=== PATIENT | female | born 1975 | race Caucasian/White ===

== ENCOUNTER → 2016-12-06 | Outpatient (CLI) | payer MEDICARE, MEDICAID ==
[~2016-12-06] MED LIST: /CELE20CA OR; /ESCI10TA; /ESCI20TA OR; ALBOTERNEB INHALATION; AMITRIP50 PO; ANEXSIA PO; ANEXSIA5 PO; ATARAX25 PO; AVELOX PO; BACL10TA2 OR; BACL10TA2 PO; CLARITIN10 PO; DICL75TA PO; DOXYCYC100 PO; FERROUS325 PO; FLEXERIL OR; FLEXERIL PO; HYCODAN PO; HYDR25TA8 OR; HYDROCCR1 TOPICAL; IBUP600T OR; KENALOG1 TOPICAL; LACHYDRIN TOP; LEXA5TAB13; LEXAPRO; LIDODERM TOPICAL; MELA0.02 PO; MOTRIN400 PO; MOTRIN6 PO; MOTRIN800 PO; MULTIVIT PO; NABU500T; NEUR600T; NEUR800T; NEUR800T OR; NEURONTIN4 PO; NICO21DI4; PERC5TAB8; PERCOCET PO; ROBITUSSIN PO; ROZEREM PO; SKEL800T5 OR; SOMA250T; SOMA250T OR; SOMA350T; TIZA4CAP3 PO; TRAM50TA2; TRAM50TA2 OR; TRAM50TA2 PO; TRAZ100T; TRAZ150T; TRAZ150T OR; ULTRAM50 PO; VENL75TA2; VENL75TA2 OR; VICO5TAB OR; VICODIN PO; VICODINES TAB OR; VICOTAB OR; VICOTAB PO; VIT B COMPLEX; VITAMIN B COMPLE1 OR; VOLT1GEL EX; WELLBUT300 PO; ZANA4CAP; ZIPSOR OR; [UNRECOGNIZED DRUG - CODE] PO; [UNRECOGNIZED DRUG - CODE] PO; [UNRECOGNIZED DRUG - CODE] PO; [UNRECOGNIZED DRUG - OTHER]; vicoprofen PO
--- NOTE | 2016-12-12 00:03 | ECWPNPC ---
PATIENT NAME: SHAJI VENTURA : 1975 GENDER: FEMALE VISIT DATE: 12/06/2016 DISCHARGE DATE: 12/06/16 1055 VISIT LOCKED DATE TIME: PHYSICIAN: RAH SIMON RESOURCE: RAH SIMON REASON FOR APPOINTMENT 1. BACK HISTORY OF PRESENT ILLNESS HISTORY OF PRESENT ILLNESS: PAIN THE PATIENT DESCRIBES THE PAIN... FALL RISK SCREENING: SCREENING :NO FALLS IN THE PAST YEAR TODAY'S VISIT: NOTES: RATES PAIN TODAY 8-9/10. DESCRIBES PAIN CONSTANT, ACHING, BURNING, TENDER, THROBBING AND SORE AND SHOOTING. NOTES PAIN IS OVER WHOLE BACK WITH RADIATION TO RIGHT LEG. THIS INCREASE IN PAIN OCCURRED ON 12/01/16WHEN SHE MOVED HER PARENTS BACK TO THEIR [place] HOME. CURRENT MEDICATIONS TAKING TRAZODONE HCL 150 MG TABLET 1 TABLET AT BEDTIME NEEDED ORALLY DAILY AT BEDTIME TAKING TRAMADOL HCL 50 MG TABLET 1-2 TABLETS ORALLY TAKE 1-2 TABS Q 4 HOURS PRN PAIN MDD=5 TAKING BUSPIRONE HCL 10 MG TABLET 1 TABLET ORALLY BID TAKING TIZANIDINE HCL 4 MG TABLET 1 TABLET NEEDED ORALLY EVERY 8 HRS PRN TAKING IBUPROFEN 800 MG TABLET 1 TABLET ORALLY THREE TIMES A DAY TAKING DULOXETINE HCL 30 MG CAPSULE DELAYED RELEASE PARTICLES 1 CAPSULE ORALLY TWICE A DAY TAKING GABAPENTIN 800 MG TABLET 1 TABLET ORALLY THREE TIMES A DAY (PAIN CLINIC) MEDICATION LIST REVIEWED AND RECONCILED WITH THE PATIENT PAST MEDICAL HISTORY [facility] 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 CHRONIC BACK PAIN ARTHRITIS HEPATITIS C 1A STAGE F0 VL 1.7 MILLION [place] [facility] 11/28/15 HEPATITIS A IGG POSITIVE 2004 HEPATITIS B SURFACE ANTIBODY 2008 NICOTINE ADDICTION DEPRESSION PSORIASIS KIDNEY STONES CYST ON OVARY ALLERGIES AMOXICILLIN: HIVES: ALLERGY PENICILLIN (FOR ALLERGIES USE ONLY): HIVES: ALLERGY SOCIAL HISTORY GENERAL: TOBACCO USE ARE YOU A:CURRENT SMOKER HOW MANY CIGARETTES A DAY DO YOU SMOKE?11-20 HOW SOON AFTER YOU WAKE UP DO YOU SMOKE YOUR FIRST CIGARETTE?6-30 MIN HOW OFTEN DO YOU SMOKE CIGARETTES?EVERY DAY PATIENT COUNSELED ON THE DANGERS OF TOBACCO USE AND URGED TO QUIT: COUNCELLED ON THE IMPORTANCE OF QUITTING. ARE YOU INTERESTED IN QUITTING?THINKING ABOUT QUITTING HAS BEEN TRYING THE VAPOR BUT DOESN'T SEEM TO CUT IT LEARNING BARRIERS / SPECIAL NEEDS ORIENTED TO PLAN OF CARE: PATIENT, PAIN MANAGEMENT PATIENT, ORIENTED TO PLAN OF CARE: PATIENT, PAIN MANAGEMENT PATIENT. NEW PATIENT PAIN DIARY TODAY'S VISITNOTES FROM 0-10, WHAT LEVEL IS YOUR PAIN TODAY?0 PAIN CLINIC PFS, CLERGY, PUBLIC HEALTH REFERRALS PFS REFERRAL NEEDED?NO CLERGY REFERRAL NEEDED?NO PUBLIC HEALTH REFERRAL NEEDED?NO WAS THE PROVIDER NOTIFIED OF ANY PERTINENT INFO?NO PFS REFERRAL NEEDED?NO CLERGY REFERRAL NEEDED?NO PUBLIC HEALTH REFERRAL NEEDED?NO WAS THE PROVIDER NOTIFIED OF ANY PERTINENT INFO?NO REVIEW OF SYSTEMS CONSTITUTIONAL: ANY CHANGE IN YOUR MEDICAL CONDITION? NO . CHILLS NO . FEVER NO . INFECTION: DO YOU HAVE NEW INFECTIONS? NO . DO YOU HAVE HISTORY OF MRSA? NO . MUSCULOSKELETAL: ANY NEW PATTERNS OF PAIN OR NUMBNESS? YES, PAIN ALL OVER--HELPED MOVE PARENTS BACK AND LIFTED TOO MUCH. PAIN RIGHT HIP, STATES SHE FEELS LIKE IT PULLED OUT OF THE SOCKET, OCC. LOSES HER BALANCE. SHE IS UNABLE TO PUT HER FULL WT. ON THE LEG . GASTROENTEROLOGY: ANY NEW CHANGE IN BOWEL CONTROL? NO . GENITOURINARY: ANY NEW CHANGE IN BLADDER CONTROL? NO . IS THERE A CHANCE YOU COULD BE ? NO . HEMATOLOGY/LYMPH: DO YOU TAKE ANY BLOOD THINNERS? (FOR EXAMPLE- COUMADIN, PLAVIX, AGGRENOX, PLATEL, PRADAXA, OR XARELTO) NO . WHEN WAS YOUR LAST DOSE? DATE: TIME: . NEUROLOGY: HAVE YOU FALLEN IN THE PAST 6 MONTHS? YES, APPROX 3 WEEKS AGO. WAS TRYING TO CATCH SOMEONE ELSE AND SHE FELL A RESULT. . ANY NEW EXTREMITY NUMBNESS OR WEAKNESS? YES, LEGS ARE WEAK. . CARDIOLOGY: DO YOU HAVE A PACEMAKER OR DEFIBRILLATOR? NO . RESPIRATORY: HAVE YOU BEEN SICK IN THE PAST WEEK? YES, SINUS CONGESTION AND SORE THROAT . FEVER NO . FLU LIKE SYMPTOMS? NO . COUGH NO . INTEGUMENTARY: DO YOU HAVE ANY RASHES OR OPEN SORES? YES, PSORIOSIS ALL OVER . ALLERGIC/IMMUNO: ARE YOU ALLERGIC TO SHELLFISH OR IV DYE? NO . ANY NEW ALLERGIES? NO . PSYCHIATRIC: DO YOU HAVE THOUGHTS OF HURTING YOURSELF OR SOMEONE ELSE? NO . ARE YOU ABUSED, NEGLECTED, OR IN AN UNSAFE ENVIRONMENT? NO . ENDOCRINOLOGY: ARE YOU DIABETIC? NO . OTHER: DO YOU NEED ANY PRESCRIPTIONS? NO . IF YES, PLEASE LIST: ____ . ANY NEW PROBLEMS WITH YOUR MEDICATIONS? NO . WHEN DID YOU LAST EAT? ____ . WHEN DID YOU LAST DRINK? ____ . WHAT DID YOU LAST DRINK? ____ . NAME OF PERSON DRIVING YOU HOME? ____ . DO YOU HAVE ANY OTHER QUESTIONS OR CONCERNS YES, EXTREME PAIN RIGHT LEG. HAS BEEN LIKE THIS SINCE 11/30 AFTER HELPING PARENTS MOVE . REVIEWED BY: PROVIDER: RAH PATINO . VITAL SIGNS WT 163.8 LBS, HT 64 IN, BMI 28.11 INDEX, BP 123/77 MM HG, HR 86 /MIN, RR 16 /MIN, TEMP 98.4 F, OXYGEN SAT % 98, NA INITIALS [id number], REVIEWED BY: AD. EXAMINATION GENERAL EXAMINATION: PSYCHALERT , ORIENTED X 3 , APPROPRIATE MOOD AND AFFECT . HEENT:VOICE RASY. LUNGS:CLEAR TO AUSCULTATION BILATERALLY, NO WHEEZES, RALES OR RHONCHI. HEART:HEART RATE REGULAR, RAPID. MUSCULOSKELETAL:GAIT ANTALGIC. , PALPATION: POSITIVE FOR PAIN OVER LUMBAR SPINOUS PROCESSES AND ACROSS THE LUMBOSACRAL AXIS, LEFT > RIGHT. POSITIVE FOR PAIN OVER L/S PARSPINALS AND OVER THE RIGHT PIRIFORMIS. SLOW TO RISE TO STANDING POSITION. POSTURE STOOPED. WEAKNESS NOTED WITH QUAD FLEXION LEFT > RIGHT.. SKIN:PSORIASIS LESIONS NOTED ON ARMS AND LEGS.. ASSESSMENTS LUMBAR POST-LAMINECTOMY SYNDROME - M96.1 (PRIMARY) MYALGIA - M79.1 TREATMENT LUMBAR POST-LAMINECTOMY SYNDROME CAUDAL/LUMBAR EPIDURALALFREDRAH Naomi 12/06/2016 10:35:14 AM > L3-LEVEL ALFREDRAH M 12/06/2016 10:35:14 AM > L3-LEVEL ALFREDRAH M 12/06/2016 10:35:30 AM > CAUDAL NOTES: CONTINUE CURRENT MEDS,: YOUR EXPERIENCE MATERIAL WAS PRINTED,LUMBAR EPIDURAL INJECTION: RECOVERY AT HOME MATERIAL WAS PRINTED,WHAT IS LUMBAR EPIDURAL INJECTION? MATERIAL WAS PRINTED,PATIENT EDUCATION WAS PRINTED, # 226 TOBACCO USE SCREENING/INTERVENTION: PATIENT CURRENTLY USED TOBACCO. WAS OFFERED SMOKING CESSATION FOR GUIDANCE IN QUITTING THROUGH THE [facility] QUITS PROGRAM AND THE [facility] CESSATION PRO[facility]. , FALLS CARE PLAN: 1. RECOMMEND REMOVING ALL THROW RUGS. 2. RECOMMEND NIGHT LIGHTS 3. RECOMMEND WEARING RUBBER SOLED SHOES AND TO NOT GO BAREFOOT. 4.. ADVISED TO CHANGE POSITION SLOWLY FROM SUPINE TO STANDING TO AVOID DIZZINESS. CLINICAL NOTES: ISTOP REGISTRY REVIEWED AND DEMNOSTRATES COMPLLIANCE. BRINGS IN MEDICATIONS WHICH IS APPROPRIATE FOR WHAT WAS DISPENSED. RECENT URINE TOXICOLOGY REVIEWED. NO UNAUTHORIZED MEDICATIONS. NO ILLICIT SUBSTANCES AND PRESCRIBED MEDICATIONS WERE PRESENT. PREVENTIVE MEDICINE PAIN CLINIC TEACHING: PROCEDURE TEACHING PATIENT DECLINED PRINTED INFORMATION ON EPIDURAL STATING SHE HAS HAD THEM IN THE PAST AND IS FAMILIAR WITH IT. PATIENT ALLOWED OPPORTUNITY TO ASK QUESTIONS.. PROCEDURE CODES FA211 ESTABILISHED PATIENT [facility] FACILITY CHARGE G8783 BP SCR PRFRM RCMDD DEFIND SCR INTVL G8730 PAIN ASSESS POS TOOL F/U PLAN DOC 3016F PT SCRND UNHLTHY OH USE 1124F ACP DISCUSS-NO DSCNMKR DOCD 0518F FALL PLAN OF CARE DOCD G8427 DOC MEDS VERIFIED W/PT OR RE G8420 BMI<30 AND >=22 CALC & DOCU 3288F FALL RISK ASSESSMENT DOCD 4004F PT TOBACCO SCREEN RCVD TLK DISPOSITION & COMMUNICATION FOLLOW UP AFTER INJECTION (REASON: CHECK AUTH LE- CAUDAL APPROACH) ELECTRONICALLY SIGNED BY EDGARDO AKHTAR ON 12/11/2016 AT 01:29 PM EDT DISCLAIMER : THIS IS A VISIT SUMMARY EXTRACTED FROM THE [employer] CHART. IT IS NOT A COPY OF THE [employer] PROGRESS NOTE. MTDBright
== END ==
LOC: M PAIN 09:40
PROVIDERS: ATTEND Nurse Practitioner Family
DX: Z09 Encounter for follow-up examination after completed treatment for conditions other than malignant neoplasm (principal); G89.29 Other chronic pain; M96.1 Postlaminectomy syndrome, not elsewhere classified; M79.1 Myalgia; F17.200 Nicotine dependence, unspecified, uncomplicated; F32.9 Major depressive disorder, single episode, unspecified; L40.9 Psoriasis, unspecified; Z88.1 Allergy status to other antibiotic agents; Z88.0 Allergy status to penicillin; Z79.891 Long term (current) use of opiate analgesic; Z79.1 Long term (current) use of non-steroidal anti-inflammatories (NSAID); Z79.899 Other long term (current) drug therapy

== ENCOUNTER → 2017-03-13 | Outpatient (CLI) | payer MEDICARE, MEDICAID ==
[~2017-03-13] MED LIST changes: -MELA0.02 PO; +MELA3TAB49 PO
--- NOTE | 2017-03-14 00:02 | ECWPNPC ---
PATIENT NAME: SHAJI VENTURA : 1975 GENDER: FEMALE VISIT DATE: 03/13/2017 DISCHARGE DATE: 03/13/17 1555 VISIT LOCKED DATE TIME: PHYSICIAN: RAH SIMON RESOURCE: RAH SIMON REASON FOR APPOINTMENT 1. MEDS, BACK HISTORY OF PRESENT ILLNESS HISTORY OF PRESENT ILLNESS: PAIN THE PATIENT DESCRIBES THE PAIN... FALL RISK SCREENING: SCREENING :NO FALLS IN THE PAST YEAR TODAY'S VISIT: NOTES: RATES PAIN TODAY 8/10. NOTES IT FEELS LIKE SHE GOT KICKED IN THE BACK. NOTES WEAKNESS IN RIGHT LEG AND KNEE. DESCRIBES PAIN CONSTANT, SHARP, STABBING SHOOTING AND SORE. NOTES INCREASING NUMBNESS IN RIGHT FOOT AND SIGNIFICANT DIFFICULTY WALKING. HAD SEVERAL FALLS DUE TO BALANCE DIFFICULTIES.. CURRENT MEDICATIONS TAKING TRAZODONE HCL 150 MG TABLET 1 TABLET AT BEDTIME NEEDED ORALLY DAILY AT BEDTIME TAKING BUSPIRONE HCL 10 MG TABLET 1 TABLET ORALLY BID TAKING TIZANIDINE HCL 4 MG TABLET 1 TABLET NEEDED ORALLY EVERY 8 HRS PRN TAKING IBUPROFEN 800 MG TABLET 1 TABLET ORALLY THREE TIMES A DAY TAKING DULOXETINE HCL 30 MG CAPSULE DELAYED RELEASE PARTICLES 1 CAPSULE ORALLY TWICE A DAY TAKING GABAPENTIN 800 MG TABLET 1 TABLET ORALLY THREE TIMES A DAY (PAIN CLINIC) TAKING TRAMADOL HCL 50 MG TABLET 1-2 TABLETS ORALLY TAKE 1-2 TABS Q 4 HOURS PRN PAIN MDD=5 MEDICATION LIST REVIEWED AND RECONCILED WITH THE PATIENT PAST MEDICAL HISTORY [facility] 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 CONSTITUTIONAL: ANY CHANGE IN YOUR MEDICAL CONDITION? NO . CHILLS NO . FEVER NO . INFECTION: DO YOU HAVE NEW INFECTIONS? NO . DO YOU HAVE HISTORY OF MRSA? NO . MUSCULOSKELETAL: ANY NEW PATTERNS OF PAIN OR NUMBNESS? NO, PT STATES SHE WAS SEEN HERE 11/2016, A CAUDAL LE WAS ORDERED AND SCHEDULED FOR PAIN CONTROL. PT STATES SHE GOT SICK, RECHEDULED, LOST HER NERVE TO GO THROUGH WITH IT. . GASTROENTEROLOGY: ANY NEW CHANGE IN BOWEL CONTROL? NO . GENITOURINARY: ANY NEW CHANGE IN BLADDER CONTROL? NO . IS THERE A CHANCE YOU COULD BE ? NO . HEMATOLOGY/LYMPH: DO YOU TAKE ANY BLOOD THINNERS? (FOR EXAMPLE- COUMADIN, PLAVIX, AGGRENOX, PLATEL, PRADAXA, OR XARELTO) NO . WHEN WAS YOUR LAST DOSE? DATE: TIME: . NEUROLOGY: HAVE YOU FALLEN IN THE PAST 6 MONTHS? NO . ANY NEW EXTREMITY NUMBNESS OR WEAKNESS? NO . CARDIOLOGY: DO YOU HAVE A PACEMAKER OR DEFIBRILLATOR? NO . RESPIRATORY: HAVE YOU BEEN SICK IN THE PAST WEEK? NO . FEVER NO . FLU LIKE SYMPTOMS? NO . COUGH NO . INTEGUMENTARY: DO YOU HAVE ANY RASHES OR OPEN SORES? NO . ALLERGIC/IMMUNO: ARE YOU ALLERGIC TO SHELLFISH OR IV DYE? NO . ANY NEW ALLERGIES? NO . PSYCHIATRIC: DO YOU HAVE THOUGHTS OF HURTING YOURSELF OR SOMEONE ELSE? NO . ARE YOU ABUSED, NEGLECTED, OR IN AN UNSAFE ENVIRONMENT? NO . ENDOCRINOLOGY: ARE YOU DIABETIC? NO . OTHER: DO YOU NEED ANY PRESCRIPTIONS? YES . IF YES, PLEASE LIST: ____ . ANY NEW PROBLEMS WITH YOUR MEDICATIONS? NO . WHEN DID YOU LAST EAT? ____ . WHEN DID YOU LAST DRINK? ____ . WHAT DID YOU LAST DRINK? ____ . NAME OF PERSON DRIVING YOU HOME? ____ . DO YOU HAVE ANY OTHER QUESTIONS OR CONCERNS NO . SKIN: DO YOU HAVE ANY RASHES OR OPEN SORES? PSORIASIS UNDER FAIR CONTROL . VITAL SIGNS WT 155.4 LBS, HT 64 IN, BMI 26.67 INDEX, BP 142/73 MM HG, HR 92 /MIN, RR 16 /MIN, TEMP 99.4 F, OXYGEN SAT % 97%, SAFE IN ENV? (Y/N) Y, NA INITIALS SC 15:14, REVIEWED BY: EM. EXAMINATION GENERAL EXAMINATION: PSYCHALERT , ORIENTED X 3 , APPROPRIATE MOOD AND AFFECT . HEENT:VOICE RASY. LUNGS:CLEAR TO AUSCULTATION BILATERALLY, NO WHEEZES, RALES OR RHONCHI. HEART:HEART RATE REGULAR, RAPID. MUSCULOSKELETAL:GAIT ANTALGIC. , PALPATION: POSITIVE FOR PAIN OVER LUMBAR SPINOUS PROCESSES AND ACROSS THE LUMBOSACRAL AXIS, RIGHT > LEFT. . POSITIVE FOR PAIN OVER LUMBAR PARSPINAL MUSCLES AND OVER THE RIGHT SACRUM. SLOW TO RISE TO STANDING POSITION. POSTURE STOOPED. WEAKNESS NOTED WITH QUAD FLEXION LEFT > RIGHT. GAIT ANTALGIC WITH STIFFNESS IN RIGHT LEG. SKIN:PSORIASIS LESIONS NOTED ON ARMS AND LEGS.. ASSESSMENTS LUMBAR POST-LAMINECTOMY SYNDROME - M96.1 (PRIMARY) MYALGIA - M79.1 TREATMENT LUMBAR POST-LAMINECTOMY SYNDROME REFILL GABAPENTIN TABLET, 800 MG, 1 TABLET, ORALLY, THREE TIMES A DAY (PAIN CLINIC), 30 DAY(S), 90, REFILLS 4 REFILL DULOXETINE HCL CAPSULE DELAYED RELEASE PARTICLES, 30 MG, 1 CAPSULE, ORALLY, TWICE A DAY, 30 DAY(S), 60, REFILLS 2 REFILL TIZANIDINE HCL TABLET, 4 MG, 1 TABLET NEEDED, ORALLY, EVERY 8 HRS PRN, 30 DAY(S), 45, REFILLS 2 REFILL BUSPIRONE HCL TABLET, 10 MG, 1 TABLET, ORALLY, BID, 30 DAY(S), 60 TABLET, REFILLS 2 REFILL TRAZODONE HCL TABLET, 150 MG, 1 TABLET AT BEDTIME NEEDED, ORALLY, DAILY AT BEDTIME, 30 DAY(S), 30, REFILLS 5 REFILL TRAMADOL HCL TABLET, 50 MG, 1-2 TABLETS, ORALLY, TAKE 1-2 TABS Q 4 HOURS PRN PAIN MDD=5, 30 DAY(S), 150, REFILLS 2 LAB: RENAL PROFILE [facility] MRI LS SPINE W/O AND WITH [id number],SUSAN M 03/13/2017 3:33:49 PM > INCREASED RIGHT LEG PAIN/WEAKNESS NOTES: MOVE FORWARD WITH CAUDAL EPIDURAL. CLINICAL NOTES: ISTOP REGISTRY REVIEWED AND DEMNOSTRATES COMPLLIANCE.. REQUEST AUTH FOR MRI OF LUMBAR SPINE WITH AND WITHOUT CONTRAST. SHAJI IS S/P LUMBAR FUSION AND IS NOW EXPERIENCING INCREASING WEAKNESS AND PARESTHESIA/DYSESTHESIA IN BILATERAL LOWER EXTREMITIES. SHE HAS COMPLETED PHYSICAL THERAPY WITHOUT IMPROVEMENT, SHE WALKS DAILY THIS IS HER ONLY TRANSPORTATION AND SHE HAS BEEN TRAILED FOR GREATER THAN 6 WEEKS ON MUSCLE RELAERS AND NSAIDS WITHOUT IMPROVEMENT. PROCEDURE CODES FA211 ESTABILISHED PATIENT [facility] FACILITY CHARGE G1388 PAIN ASSESS POS TOOL F/U PLAN DOC G8427 DOC MEDS VERIFIED W/PT OR RE DISPOSITION & COMMUNICATION FOLLOW UP SCHED FOR CAUDAL EPIDURAL/ FOLLOW UP WITH SW AFTER (REASON: NEED AUTH FOR LUMAR MRI WAND W/O CONTRAST) ELECTRONICALLY SIGNED BY EDGARDO AKHTAR ON 03/13/2017 AT 04:40 PM EDT DISCLAIMER : THIS IS A VISIT SUMMARY EXTRACTED FROM THE [employer] CHART. IT IS NOT A COPY OF THE [employer] PROGRESS NOTE. MTDD
== END ==
LOC: M PAIN 15:00
PROVIDERS: ATTEND Nurse Practitioner Family
DX: M96.1 Postlaminectomy syndrome, not elsewhere classified (principal); M79.1 Myalgia; Z79.891 Long term (current) use of opiate analgesic; Z79.899 Other long term (current) drug therapy; Z88.0 Allergy status to penicillin

== ENCOUNTER → 2017-04-05 | Outpatient (CLI) | payer MEDICARE, MEDICAID ==
[2017-04-05 16:05] LABS: ALBUMIN 3.6 GM/DL (3.2-5.2); ANION GAP 5 MEQ/L (8-16); BLOOD UREA NITROGEN 15 MG/DL (7-18); CALCIUM LEVEL 9.2 MG/DL (8.5-10.1); CARBON DIOXIDE LEVEL 29 MEQ/L (21-32); CHLORIDE LEVEL 101 MEQ/L (98-107); CREATININE FOR GFR 0.65 MG/DL (0.55-1.02); GLOMERULAR FILTRATION RATE > 60.0 (>58); GLUCOSE, FASTING 79 MG/DL (70-105); PHOSPHORUS LEVEL 2.8 MG/DL (2.5-4.9); SODIUM LEVEL 135 MEQ/L (136-145)
== END ==
LOC: M LAB 14:04
PROVIDERS: ATTEND Nurse Practitioner Family
DX: M96.1 Postlaminectomy syndrome, not elsewhere classified (principal)

== ENCOUNTER → 2017-06-13 | Outpatient (CLI) | payer MEDICARE, MEDICAID ==
--- NOTE | 2017-06-13 17:03 | REP ---
MRI LUMBAR SPINE WITHOUT AND WITH CONTRAST: HISTORY: Back pain. CONTRAST: ProHance 12.6 mL. COMPARISON: 12/21/2009. Decreased signal intensity on T2-weighted images is present in the L4-5 intervertebral disc. The disc is decreased in height. These findings are consistent with disc degeneration. There is no disc bulge or herniation at the L1-2 through L3-4 and L5-S1 levels. There is hypertrophy of the posterior articulating facets at the L2-3 and L3-4 levels. The nerves exit the neural foramina without compression. The patient is status post L4-5 anterior and posterior spinal fusion and laminectomy. Bone graft material is present anteriorly and metal rods and pedicle screws posteriorly. There is no disc bulge or herniation at this level. There is hypertrophy of the posterior articulating facets. There are 3 mm of grade 1 spondylolisthesis of L4 on L5. The L4 nerves exit the neural foramina without compression. A small amount of enhancing scar tissue is present in the lateral aspects of the spinal canal. The scar tissue involves the L5 nerves. The conus medullaris is normal in appearance terminating at the level of L1-2 intervertebral disc. Normal signal intensity is present in the lumbar vertebral bodies. IMPRESSION: The patient is status post L4-5 anterior and posterior spinal fusion and laminectomy. There is grade 1 spondylolisthesis of L4 on L5. A small amount of scar tissue involves the L5 nerves. The postoperative change is a new finding. Signed by Pawel Simms MD 06/14/2017 07:55 A
== END ==
LOC: M RAD 15:06
PROVIDERS: ATTEND Nurse Practitioner Family
DX: M54.5 Low back pain (principal)
CPT/HCPCS: 72158; A9576

== ENCOUNTER → 2017-08-30 | Outpatient (CLI) | payer MEDICARE, MEDICAID | LOC: M PAIN 13:00 | DX: M96.1 Postlaminectomy syndrome, not elsewhere classified (principal); M79.1 Myalgia; F17.210 Nicotine dependence, cigarettes, uncomplicated; Z79.891 Long term (current) use of opiate analgesic; Z79.899 Other long term (current) drug therapy; Z88.0 Allergy status to penicillin; Z88.1 Allergy status to other antibiotic agents | CPT/HCPCS: G0463 ==

== ENCOUNTER → 2018-04-16 | Outpatient (CLI) | payer MEDICARE, MEDICAID | LOC: M PAIN 13:45 | DX: M96.1 Postlaminectomy syndrome, not elsewhere classified (principal); M79.1 Myalgia; F32.9 Major depressive disorder, single episode, unspecified; L40.9 Psoriasis, unspecified; F17.210 Nicotine dependence, cigarettes, uncomplicated; Z79.891 Long term (current) use of opiate analgesic; Z79.899 Other long term (current) drug therapy; Z88.0 Allergy status to penicillin; Z88.1 Allergy status to other antibiotic agents; Z14.8 Genetic carrier of other disease; Z86.19 Personal history of other infectious and parasitic diseases | CPT/HCPCS: G0463 ==

== ENCOUNTER 2018-07-12 11:08 | Emergency (ER) | payer MEDICARE, MEDICAID ==
[2018-07-12] MEDS: cloNIDine HCL 0.3 MG/24 HR PATCH TOP (12:05)
[2018-07-12] MEDS: METOCLOPRAMIDE INJ 10MG/2ML VIAL (J2765) IV (12:06)
[2018-07-12] MEDS: KETOROLAC 30 MG/ML VIAL (J1885) IV (12:06)
== END 2018-07-12 12:52 | disposition home or self-care (01) ==
LOC: M ED 11:08
DX: F11.23 Opioid dependence with withdrawal (principal); Z98.1 Arthrodesis status; Z88.0 Allergy status to penicillin; Z79.899 Other long term (current) drug therapy
CPT/HCPCS: J1885

== ENCOUNTER → 2018-07-16 | Outpatient (CLI) | payer MEDICARE, MEDICAID | LOC: M PAIN 13:00 | DX: M96.1 Postlaminectomy syndrome, not elsewhere classified (principal); M79.18 Myalgia, other site; F32.9 Major depressive disorder, single episode, unspecified; L40.9 Psoriasis, unspecified; F17.210 Nicotine dependence, cigarettes, uncomplicated; Z79.899 Other long term (current) drug therapy; Z88.0 Allergy status to penicillin; Z88.1 Allergy status to other antibiotic agents; Z86.19 Personal history of other infectious and parasitic diseases | CPT/HCPCS: G0463 ==

== ENCOUNTER → 2018-10-16 | Outpatient (CLI) | payer MEDICARE, MEDICAID ==
[~2018-10-16] MED LIST changes: +CLON0.3D8 TOP; +DULO1CAP3; +GABA800T4; +REGL10TA6 PO; +TIZA4CAP PO; -TIZA4CAP3 PO; +TRAZ-163 PO
--- NOTE | 2018-10-28 00:40 | ECWPNPC ---
PATIENT NAME: SHAJI VENTURA : 1975 GENDER: FEMALE VISIT DATE: 10/16/2018 DISCHARGE DATE: 10/16/18 1430 VISIT LOCKED DATE TIME: PHYSICIAN: ISMAEL WARREN RESOURCE: ISMAEL WARREN REASON FOR APPOINTMENT 1. BACK HISTORY OF PRESENT ILLNESS HISTORY OF PRESENT ILLNESS: HERE FOR F/U OF CHRONIC LOW BACK AND RIGHT LEG PAIN.RATING PAIN VAS 7/10.FINDS CURRENT CHONIC PAIN MEDICATION EFFECTIVE AT REDUCING PAIN AND KEEPING HER COMFORTABLE.DESCRIBES PAIN CONTINUOUS,ACHING AND SHARP.PAIN IS RIGHT LOW BACK AND LEG. PAIN THE PATIENT DESCRIBES THE PAIN... THE PATIENT DESCRIBES THE PAIN... FALL RISK SCREENING: SCREENING :NO FALLS IN THE PAST YEAR :NO FALLS IN THE PAST YEAR SCREENING :NO FALLS IN THE PAST YEAR :NO FALLS IN THE PAST YEAR CURRENT MEDICATIONS TAKING BUSPIRONE HCL 10 MG TABLET 1 TABLET ORALLY BID TAKING IBUPROFEN 800 MG TABLET 1 TABLET ORALLY THREE TIMES A DAY TAKING DULOXETINE HCL 30 MG CAPSULE DELAYED RELEASE PARTICLES 1 CAPSULE ORALLY DAILY TDD=90 MG TAKING DULOXETINE HCL 60 MG CAPSULE DELAYED RELEASE PARTICLES 1 CAPSULE ORALLY ONCE A DAY TDD=90 MG TAKING TRAMADOL HCL 50 MG TABLET 1-2 TABLETS ORALLY TAKE 1-2 TABS Q 4 HOURS PRN PAIN MDD=6 TAKING GABAPENTIN 800 MG TABLET 1 TABLET ORALLY THREE TIMES A DAY (PAIN CLINIC) TAKING TIZANIDINE HCL 4 MG TABLET 1 TABLET NEEDED ORALLY EVERY 8 HRS PRN TAKING TRAZODONE HCL 150 MG TABLET 1 TABLET AT BEDTIME NEEDED ORALLY DAILY AT BEDTIME MEDICATION LIST REVIEWED AND RECONCILED WITH THE PATIENT PAST MEDICAL 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 1 SON(S) , 3 DAUGHTER(S) - HEALTHY. SOCIAL HISTORY GENERAL: TOBACCO USE ARE YOU A:CURRENT SMOKER ARE YOU INTERESTED IN QUITTING?NOT READY TO QUIT COUNSELED THE PATIENT ON SMOKING EFFECTS, EDUCATION [id number]/30/2019 HOW MANY CIGARETTES A DAY DO YOU SMOKE?5 OR LESS HOW SOON AFTER YOU WAKE UP DO YOU SMOKE YOUR FIRST CIGARETTE?WITHIN 5 MIN HOW OFTEN DO YOU SMOKE CIGARETTES?EVERY DAY PATIENT COUNSELED ON THE DANGERS OF TOBACCO USE AND URGED TO QUIT:07/16/2018 ADDITIONAL FINDINGS: TOBACCO USER VAPOR SMOKING CESSATION INFORMATION GIVEN10/16/2018 BMI CARE GOAL FOLLOW-UP ABOVE NORMAL BMI FOLLOW-UPGIVING ENCOURAGEMENT TO EXERCISE ALCOHOL SCREENING DID YOU HAVE A DRINK CONTAINING ALCOHOL IN THE PAST YEAR?YES POINTS0 INTERPRETATIONNEGATIVE RECREATIONAL DRUG USE DENIES. DENOMINATIONAL [id number] NONE LANGUAGE LANGUAGES SPOKEN:[place] LEARNING BARRIERS / SPECIAL NEEDS CHANGE FROM LAST VISIT?NO BARRIERS TO LEARNING?NO HEARING IMPAIRED?NO VISION IMPAIRED?NO COGNITIVELY IMPAIRED?NO READINESS TO LEARN?YES LEARNING PREFERENCES?NO LEARNING CAPABILITIES PRESENT?NO EMOTIONAL BARRIERS?NO SPECIAL DEVICES?NO TERRAZZO SUPERVISOR NEEDED?NO DOMESTIC VIOLENCE PHYSICAL ABUSE EX . OCCUPATION: UNEMPLOYED. EXERCISE: WALKS. MARITAL STATUS: .. OTHERS AT HOME: NONE. PAIN CLINIC PFS, CLERGY, PUBLIC HEALTH REFERRALS HAS THE PATIENT BEEN EDUCATED REGARDING HIS/HER PLAN OF CARE?YES HAS THE PATIENT BEEN EDUCATED REGARDING PAIN, THE RISK FOR PAIN, THE IMPORTANCE OF EFFECTIVE PAIN MANAGEMENT, AND THE PAIN ASSESSMENT PROCESS?YES ADVANCE DIRECTIVE ADVANCE DIRECTIVE DISCUSSED WITH PATIENT:YES PT DECLINES HCP INFORMATION. REVIEWED WITH PATIENT 10/16/18 [id number] JS. HOSPITALIZATION/MAJOR DIAGNOSTIC PROCEDURE RELATED TO SURGERY REVIEW OF SYSTEMS REVIEWED BY: PROVIDER: ISMAEL . CONSTITUTIONAL: ANY CHANGE IN YOUR MEDICAL CONDITION? NO . CHILLS NO . FEVER NO . INFECTION: DO YOU HAVE NEW INFECTIONS? NO, NO . DO YOU HAVE HISTORY OF MRSA? NO, NO . MUSCULOSKELETAL: ANY NEW PATTERNS OF PAIN OR NUMBNESS? NO, NO . GASTROENTEROLOGY: ANY NEW CHANGE IN BOWEL CONTROL? NO, NO . GENITOURINARY: ANY NEW CHANGE IN BLADDER CONTROL? NO, NO . IS THERE A CHANCE YOU COULD BE ? NO, NO . HEMATOLOGY/LYMPH: DO YOU TAKE ANY BLOOD THINNERS? (FOR EXAMPLE- COUMADIN, PLAVIX, AGGRENOX, PLATEL, PRADAXA, OR XARELTO) NO, NO . WHEN WAS YOUR LAST DOSE? DATE: TIME: , DATE: TIME: . NEUROLOGY: HAVE YOU FALLEN IN THE PAST 12 MONTHS? YES, STATES FALL RECENTLY AT HOME, FELL HARD ON RIGHT ARM AND LEFT LEG. STATES NO INJURIES, NO ED VISIT . ANY NEW EXTREMITY NUMBNESS OR WEAKNESS? NO, NO . CARDIOLOGY: DO YOU HAVE A PACEMAKER OR DEFIBRILLATOR? NO, NO . RESPIRATORY: HAVE YOU BEEN SICK IN THE PAST WEEK? NO, NO . FEVER NO, NO . FLU LIKE SYMPTOMS? NO, NO . COUGH NO, NO . INTEGUMENTARY: DO YOU HAVE ANY RASHES OR OPEN SORES? YES, STATES PSORIASIS SORES . ALLERGIC/IMMUNO: ARE YOU ALLERGIC TO IV DYE? NO, NO . ANY NEW ALLERGIES? NO, NO . PSYCHIATRIC: DO YOU HAVE THOUGHTS OF HURTING YOURSELF OR SOMEONE ELSE? NO, NO . ARE YOU ABUSED, NEGLECTED, OR IN AN UNSAFE ENVIRONMENT? NO, NO . ENDOCRINOLOGY: ARE YOU DIABETIC? NO, NO . OTHER: DO YOU NEED ANY PRESCRIPTIONS? NO . IF YES, PLEASE LIST: ____ . ANY NEW PROBLEMS WITH YOUR MEDICATIONS? NO . WHEN DID YOU LAST EAT? ____ . WHEN DID YOU LAST DRINK? ____ . WHAT DID YOU LAST DRINK? ____ . NAME OF PERSON DRIVING YOU HOME? ____ . DO YOU HAVE ANY OTHER QUESTIONS OR CONCERNS NO . VITAL SIGNS WT 168 LBS, HT 64 IN, BMI 28.83 INDEX, BP 124/74 MM HG, HR 84 /MIN, RR 18 /MIN, TEMP 98.2 F, OXYGEN SAT % 97%, SAFE IN ENV? (Y/N) YES, NA INITIALS 13:48 SC, REVIEWED BY: JUNI. EXAMINATION GENERAL EXAMINATION: GENERAL APPEARANCE:AWAKE,ALERT ,PLEAASANT . PSYCHAFFECT NORMAL . LUNGS:LUNG CANTU ARE CLEAR TO AUSCULTATION BILATERALLY. GOOD MOVEMENT OF AIR . HEART:S1, S2 IN A REGULAR RATE AND RHYTHM. NO SIGNIFICANT MURMURS, RUBS OR GALLOPS NOTED . ASSESSMENTS LUMBAR POST-LAMINECTOMY SYNDROME - M96.1 (PRIMARY) TREATMENT LUMBAR POST-LAMINECTOMY SYNDROME CONTINUE BUSPIRONE HCL TABLET, 10 MG, 1 TABLET, ORALLY, BID CONTINUE IBUPROFEN TABLET, 800 MG, 1 TABLET, ORALLY, THREE TIMES A DAY CONTINUE DULOXETINE HCL CAPSULE DELAYED RELEASE PARTICLES, 30 MG, 1 CAPSULE, ORALLY, DAILY TDD=90 MG CONTINUE DULOXETINE HCL CAPSULE DELAYED RELEASE PARTICLES, 60 MG, 1 CAPSULE, ORALLY, ONCE A DAY TDD=90 MG CONTINUE TRAMADOL HCL TABLET, 50 MG, 1-2 TABLETS, ORALLY, TAKE 1-2 TABS Q 4 HOURS PRN PAIN MDD=6 CONTINUE GABAPENTIN TABLET, 800 MG, 1 TABLET, ORALLY, THREE TIMES A DAY (PAIN CLINIC) CONTINUE TIZANIDINE HCL TABLET, 4 MG, 1 TABLET NEEDED, ORALLY, EVERY 8 HRS PRN CONTINUE TRAZODONE HCL TABLET, 150 MG, 1 TABLET AT BEDTIME NEEDED, ORALLY, DAILY AT BEDTIME PROCEDURE CODES FA211 ESTABILISHED PATIENT [facility] CHARGE DISPOSITION & COMMUNICATION FOLLOW UP 3 MONTHS BRING MEDS ELECTRONICALLY SIGNED BY CAREY MACIEL ON 10/27/2018 AT 03:11 PM EST DISCLAIMER : THIS IS A VISIT SUMMARY EXTRACTED FROM THE [employer] CHART. IT IS NOT A COPY OF THE [employer] PROGRESS NOTE. MTDD
== END ==
LOC: M PAIN 13:15
PROVIDERS: ATTEND Nurse Practitioner Family
DX: M96.1 Postlaminectomy syndrome, not elsewhere classified (principal); F32.9 Major depressive disorder, single episode, unspecified; L40.9 Psoriasis, unspecified; Z87.442 Personal history of urinary calculi; Z98.1 Arthrodesis status; F17.210 Nicotine dependence, cigarettes, uncomplicated; Z79.891 Long term (current) use of opiate analgesic; Z79.899 Other long term (current) drug therapy; Z88.0 Allergy status to penicillin

== ENCOUNTER → 2019-01-24 | Outpatient (REF) | payer MEDICARE, MEDICAID ==
[~2019-01-24] MED LIST changes: -/CELE20CA OR; -/ESCI10TA; -/ESCI20TA OR; +CELE1CAP4 OR; +LEXA1TAB; +LEXA1TAB2 OR; -LEXAPRO
[2019-01-30 14:14] LABS: HPV HYBRID CAPTURE II Positive (Negative)
== END ==
LOC: M SFHCWAGY 16:20
PROVIDERS: ATTEND Nurse Practitioner Family
DX: Z12.4 Encounter for screening for malignant neoplasm of cervix (principal); R87.612 Low grade squamous intraepithelial lesion on cytologic smear of cervix (LGSIL)
CPT/HCPCS: 87624; G0101; G0123

== ENCOUNTER → 2019-02-17 | Outpatient (CLI) | payer MEDICARE, MEDICAID ==
--- NOTE | 2019-02-17 16:24 | REPMRS ---
Patient History The patient states she had a clinical breast exam in 02/2019. Family history of pancreatic cancer in maternal grandfather. No Hormone Replacement Therapy 3D TOMOSYNTHESIS WAS PERFORMED. Digital Woman Screen Mammo: February 17, 2019 - Exam #: [id number] Bilateral CC and MLO view(s) were taken. Technologist: Dana Mclaughlin, Technologist Prior study comparison: January 28, 2016, digital woman screen mammo performed at [facility]. FINDINGS: The breast tissue is heterogeneously dense. This may lower the sensitivity of mammography. There has been no change in the appearance of the mammogram from the prior studies. There is a moderate amount of residual fibroglandular tissue which is fairly symmetric. There is no interval development of dominant mass, areas of architectural distortion, or clustered microcalcification typical of malignancy. Assessment: BI-RADS/ACR category 1 mammogram. Negative Mammogram. Recommendation Routine screening mammogram in 1 year (for women over age 40). This mammogram was interpreted with the aid of an FDA-approved computer-aided dectection system. Electronically Signed By: Abel Gautam MD 02/17/19 [id number]
== END ==
LOC: M WHC 14:58
PROVIDERS: ATTEND Nurse Practitioner Family
DX: Z12.31 Encounter for screening mammogram for malignant neoplasm of breast (principal)

== ENCOUNTER → 2019-03-03 | Outpatient (REF) | payer MEDICARE, MEDICAID | LOC: M SFHCWAGY 13:35 | PROVIDERS: ATTEND Nurse Practitioner Women's Health | DX: R87.810 Cervical high risk human papillomavirus (HPV) DNA test positive (principal); R87.612 Low grade squamous intraepithelial lesion on cytologic smear of cervix (LGSIL); R87.615 Unsatisfactory cytologic smear of cervix ==

== ENCOUNTER → 2019-03-04 | Outpatient (CLI) | payer MEDICARE, MEDICAID ==
--- NOTE | 2019-03-12 23:55 | ECWPNPC ---
PATIENT NAME: SHAJI VENTURA : 1975 GENDER: FEMALE VISIT DATE: 03/04/2019 DISCHARGE DATE: 03/04/19 1031 VISIT LOCKED DATE TIME: PHYSICIAN: ISMAEL WARREN RESOURCE: ISMAEL WARREN REASON FOR APPOINTMENT 1. 3 MONTHS, BRING MEDS! HISTORY OF PRESENT ILLNESS HISTORY OF PRESENT ILLNESS: HERE FOR F/U OF CHRONIC LOW BACK AND RIGHT LEG PAIN.RATING PAIN VAS 7/10.FINDS CURRENT CHONIC PAIN MEDICATION EFFECTIVE AT REDUCING PAIN AND KEEPING HER COMFORTABLE.DESCRIBES PAIN CONTINUOUS,ACHING AND SHARP.PAIN IS RIGHT LOW BACK AND LEG.HAS MISSED SEVERAL APPOINTMENTS WITH LAST VISIT 09/2018.DID NOT BRING TRAMADOL WITH HER BUT STATES SHE HAS A FEW DAYS LEFT.INFORMED OF CLINIC POLOICY IN REGARD TO Q2 MOS VISIT COMPLIANCE AND THAT SHE MUST BRING MEDICATION EACH VISIT. PAIN THE PATIENT DESCRIBES THE PAIN... THE PATIENT DESCRIBES THE PAIN... THE PATIENT DESCRIBES THE PAIN... FALL RISK SCREENING: SCREENING :NO FALLS REPORTED IN THE LAST YEAR CURRENT MEDICATIONS TAKING TIZANIDINE HCL 4 MG TABLET 1 TABLET NEEDED ORALLY EVERY 8 HRS PRN TAKING TRAZODONE HCL 150 MG TABLET 1 TABLET AT BEDTIME NEEDED ORALLY DAILY AT BEDTIME TAKING IBUPROFEN 800 MG TABLET 1 TABLET ORALLY THREE TIMES A DAY TAKING GABAPENTIN 800 MG TABLET 1 TABLET ORALLY THREE TIMES A DAY (PAIN CLINIC) TAKING TRAMADOL HCL 50 MG TABLET 1-2 TABLETS ORALLY TAKE 1-2 TABS Q 4 HOURS PRN PAIN MDD=6 MEDICATION LIST REVIEWED AND RECONCILED WITH THE PATIENT PAST MEDICAL HISTORY [facility]AND[facility] 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 CHRONIC BACK PAIN ARTHRITIS - FOLLOWS WITH PAIN CLINIC ON SSI DISABILITY FOR THIS HEPATITIS C 1A STAGE F0 VL 1.[facility] HEPATITIS A IGG POSITIVE 2004 HEPATITIS B SURFACE ANTIBODY 2007 - CURED PER DR. SAMUELS 2015 NICOTINE ADDICTION DEPRESSION/ANXIETY - INSOMNIA PSORIASIS - USES UV TREATMENT IN HER HOME WEEKLY - PRESCRIBED BY [facility] NURSE PRACTITIONERS KIDNEY STONES H/O PANCREATITIS - 2011 SECONDARY TO ETOH H/O ETOH ABUSE S/P REHAB IN REMISSION ALLERGIES AMOXICILLIN: HIVES - ALLERGY PENICILLIN (FOR ALLERGIES USE ONLY): HIVES - ALLERGY CHANTIX: NIGHTMARES - SIDE EFFECTS SURGICAL HISTORY TUMORS REMOVED FROM LEFT OVARY 1994 SPINAL FUSION 2010 BTL AND ENDOMETRIAL ABLATION 2011 COLPOSCOPY WITH GOLDIE 03/03/19 FAMILY HISTORY FATHER: ALIVE, CAD S/P [place] AND [place] IN HIS 60S MOTHER: ALIVE, DM, DIAGNOSED WITH HEART DISEASE SIBLINGS: ALIVE SON(S): ALIVE PATERNAL GRAND FATHER: PANCREATIC CANCER 2 BROTHER(S) - HEALTHY. 1 SON(S) , 3 DAUGHTER(S) - HEALTHY. NO H/O BREAST CANCER, OVARIAN CANCER, UTERINE CANCER, COLON CACNER. SOCIAL HISTORY GENERAL: TOBACCO USE ARE YOU A:CURRENT SMOKER ARE YOU INTERESTED IN QUITTING?NOT READY TO QUIT COUNSELED THE PATIENT ON SMOKING EFFECTS, EDUCATION GOYPMTIU22/18/2019 HOW MANY CIGARETTES A DAY DO YOU SMOKE?11-20 HOW SOON AFTER YOU WAKE UP DO YOU SMOKE YOUR FIRST CIGARETTE?WITHIN 5 MIN HOW OFTEN DO YOU SMOKE CIGARETTES?EVERY DAY PATIENT COUNSELED ON THE DANGERS OF TOBACCO USE AND URGED TO QUIT:03/04/2019 HIV / HEP-C SCREENING HIV TEST OFFERED TO PATIENT:YES DATE OFFERED:01/24/2019 TEST ACCEPTED:YES HEP-C TEST OFFERED TO PATIENT:NO BROCHURE PROVIDED TO PATIENTYES OTHERS AT HOME: NONE. EDUCATION LEVEL OF EDUCATION:COLLEGE DIET: REGULAR. LANGUAGE LANGUAGES SPOKEN:PARAGUAYAN DOMESTIC VIOLENCE PHYSICAL ABUSE EX. BMI CARE GOAL FOLLOW-UP ABOVE NORMAL BMI FOLLOW-UPGIVING ENCOURAGEMENT TO EXERCISE RECREATIONAL DRUG USE DRUG USE?NO EXERCISE: NO REGULAR EXERCISE. LEARNING BARRIERS / SPECIAL NEEDS CHANGE FROM LAST VISIT?NO BARRIERS TO LEARNING?NO HEARING IMPAIRED?YES POSSIBLE HEARING LOSS VISION IMPAIRED?YES COGNITIVELY IMPAIRED?NO :CORRECTIVE LENSES READINESS TO LEARN?YES LEARNING PREFERENCES?NO LEARNING CAPABILITIES PRESENT?NO EMOTIONAL BARRIERS?NO SPECIAL DEVICES?NO DREDGING INSPECTOR NEEDED?NO PAIN CLINIC PFS, CLERGY, PUBLIC HEALTH REFERRALS HAS THE PATIENT BEEN EDUCATED REGARDING HIS/HER PLAN OF CARE?YES HAS THE PATIENT BEEN EDUCATED REGARDING PAIN, THE RISK FOR PAIN, THE IMPORTANCE OF EFFECTIVE PAIN MANAGEMENT, AND THE PAIN ASSESSMENT PROCESS?YES LATEX QUESTIONNAIRE LATEX ALLERGY : HAVE YOU EVER DEVELOPED ANY TYPE OF REACTION AFTER HANDLING LATEX PRODUCTS SUCH RUBBER GLOVES, CONDOMS, DIAPHRAGMS, BALLOONS, SOCKS, OR UNDERWEAR?NO LATEX ALLERGY : HAVE YOU EVER DEVELOPED ANY TYPE OF REACTION DURING OR AFTER DENTAL APPOINTMENT, VAGINAL/RECTAL EXAMINATION, SURGICAL PROCEDURE, OR ANY OTHER EXPOSURE?NO LATEX RISK : HAVE YOU EVER HAD ANY DIFFICULTY BREATHING OR HIVES AFTER EATING OR HANDLING ANY FRUITS, OR VEGETABLES; SUCH KIWI, BANANAS, STONE FRUITS, OR CHESTNUTSNO LATEX RISK : DO YOU HAVE A PREVIOUS PERSONAL HISTORY OF MORE THAN NINE SURGERIES, SPINA BIFIDA, OR REPEATED CATHERTIZATIONS? NO LATEX RISK : ARE YOU FREQUENTLY EXPOSED TO LATEX PRODUCTS IN YOUR OCCUPATION?NO DATE ASKED : 12/13/2018 CAFFEINE CAFFEINE USE?YES HOW OFTEN AND HOW MUCH? 2 CUPS COFFE, 2 SODAS ADVANCE DIRECTIVE ADVANCE DIRECTIVE DISCUSSED WITH PATIENT:YES PT DECLINES HCP INFORMATION AND ASSISTNACE IN FILLING OUT AT THIS TIME. ISLAM [id number] NONE MARITAL STATUS: .. ALCOHOL SCREENING DID YOU HAVE A DRINK CONTAINING ALCOHOL IN THE PAST YEAR?YES HOW OFTEN DID YOU HAVE SIX OR MORE DRINKS ON ONE OCCASION IN THE PAST YEAR?NEVER (0 POINTS) HOW MANY DRINKS DID YOU HAVE ON A TYPICAL DAY WHEN YOU WERE DRINKING IN THE PAST YEAR?1 OR 2 (0 POINTS) HOW OFTEN DID YOU HAVE A DRINK CONTAINING ALCOHOL IN THE PAST YEAR?TWO TO FOUR TIMES A MONTH (2 POINTS) POINTS2 INTERPRETATIONNEGATIVE OCCUPATION: UNEMPLOYED. SEXUAL HX HAD SEX IN THE LAST 12 MONTHS (VAGINAL, ORAL, OR ANAL)?YES WITHMEN ONLY USE PROTECTION?YES HOW OFTEN?ALL OF THE TIME LMP:2010 HAVE YOU EVER HAD AN STD?NO REVIEWED 12/13/18 RWPATIENT HAS A OBSERVER HELPER THROUGH [facility])- HELPS WITH KEEPING TRACK OF APPOINTMENTS AND TRANSPORTATIONREVIEWED WITH PATIENT 03/04/19 0995 JS. HOSPITALIZATION/MAJOR DIAGNOSTIC PROCEDURE RELATED TO SURGERY REVIEW OF SYSTEMS REVIEWED BY: PROVIDER: ISMAEL PATINO . CONSTITUTIONAL: ANY CHANGE IN YOUR MEDICAL CONDITION? NO . CHILLS NO . FEVER NO . INFECTION: DO YOU HAVE NEW INFECTIONS? NO . DO YOU HAVE HISTORY OF MRSA? NO . MUSCULOSKELETAL: ANY NEW PATTERNS OF PAIN OR NUMBNESS? NO . GASTROENTEROLOGY: ANY NEW CHANGE IN BOWEL CONTROL? NO . GENITOURINARY: ANY NEW CHANGE IN BLADDER CONTROL? NO . IS THERE A CHANCE YOU COULD BE ? NO . HEMATOLOGY/LYMPH: DO YOU TAKE ANY BLOOD THINNERS? (FOR EXAMPLE- COUMADIN, PLAVIX, AGGRENOX, PLATEL, PRADAXA, OR XARELTO) NO . WHEN WAS YOUR LAST DOSE? DATE: TIME: . NEUROLOGY: HAVE YOU FALLEN IN THE PAST 12 MONTHS? NO . ANY NEW EXTREMITY NUMBNESS OR WEAKNESS? YES, STATES NUMBNESS/WEAKNESS TO RIGHT LEG, WORSENING OVER TIME . CARDIOLOGY: DO YOU HAVE A PACEMAKER OR DEFIBRILLATOR? NO . RESPIRATORY: HAVE YOU BEEN SICK IN THE PAST WEEK? NO . FEVER NO . FLU LIKE SYMPTOMS? NO . COUGH NO . INTEGUMENTARY: DO YOU HAVE ANY RASHES OR OPEN SORES? NO . ALLERGIC/IMMUNO: ARE YOU ALLERGIC TO IV DYE? NO . ANY NEW ALLERGIES? NO . PSYCHIATRIC: DO YOU HAVE THOUGHTS OF HURTING YOURSELF OR SOMEONE ELSE? NO . ARE YOU ABUSED, NEGLECTED, OR IN AN UNSAFE ENVIRONMENT? NO . ENDOCRINOLOGY: ARE YOU DIABETIC? NO . OTHER: DO YOU NEED ANY PRESCRIPTIONS? NO . IF YES, PLEASE LIST: ____ . ANY NEW PROBLEMS WITH YOUR MEDICATIONS? NO . WHEN DID YOU LAST EAT? ____ . WHEN DID YOU LAST DRINK? ____ . WHAT DID YOU LAST DRINK? ____ . NAME OF PERSON DRIVING YOU HOME? ____ . DO YOU HAVE ANY OTHER QUESTIONS OR CONCERNS NO . VITAL SIGNS WT 172 LBS, HT 64 IN, BMI 29.52 INDEX, BP 118/69 MM HG, HR 81 /MIN, RR 18 /MIN, TEMP 97.6 F, OXYGEN SAT % 96%, SAFE IN ENV? (Y/N) YES, NA INITIALS AW 0924, REVIEWED BY: JUNI. EXAMINATION GENERAL EXAMINATION: GENERAL APPEARANCE:AWAKE,ALERT ,PLEAASANT . PSYCHAFFECT NORMAL . LUNGS:LUNG CANTU ARE CLEAR TO AUSCULTATION BILATERALLY. GOOD MOVEMENT OF AIR . HEART:S1, S2 IN A REGULAR RATE AND RHYTHM. NO SIGNIFICANT MURMURS, RUBS OR GALLOPS NOTED . ASSESSMENTS LUMBAR POST-LAMINECTOMY SYNDROME - M96.1 (PRIMARY) TREATMENT LUMBAR POST-LAMINECTOMY SYNDROME CONTINUE TIZANIDINE HCL TABLET, 4 MG, 1 TABLET NEEDED, ORALLY, EVERY 8 HRS PRN CONTINUE IBUPROFEN TABLET, 800 MG, 1 TABLET, ORALLY, THREE TIMES A DAY CONTINUE GABAPENTIN TABLET, 800 MG, 1 TABLET, ORALLY, THREE TIMES A DAY (PAIN CLINIC) REFILL TRAMADOL HCL TABLET, 50 MG, 1-2 TABLETS, ORALLY, TAKE 1-2 TABS Q 4 HOURS PRN PAIN MDD=6, 30 DAY(S), 180, REFILLS 1 NOTES: ISTOP REGISTRY REVIEWED AND DEMONSTRATES COMPLLIANCE. (REF # ) , RISKS AND BENEFITS OF NARCOTIC/OPIOD MEDICATIONS WERE REVIEWED WITH PATIENT - THIS INCLUDES BUT IS NOT LIMITED TO RISK OF DEPENDANCE/DEVELOPMENT OF ADDICTION, MOOD DISTURBANCE AND DEPRESSION, OSTEOPOROSIS, HORMONAL AND LABIDAL CHANGES, RESPIRATORY DEPRESSION AND . PATIENT IS ADVISED NOT TO DRIVE OR DRINK ALCOHOL WHILE ON THESE MEDICATIONS .URINE TOX TODAY. PROCEDURE CODES FA211 ESTABILISHED PATIENT [facility] CHARGE DISPOSITION & COMMUNICATION FOLLOW UP 6 WEEKS ELECTRONICALLY SIGNED BY CAREY MACIEL ON 03/12/2019 AT 10:19 AM EDT DISCLAIMER : THIS IS A VISIT SUMMARY EXTRACTED FROM THE [employer] CHART. IT IS NOT A COPY OF THE [employer] PROGRESS NOTE. RONALD
== END ==
LOC: M PAIN 09:30
PROVIDERS: ATTEND Nurse Practitioner Family
DX: M96.1 Postlaminectomy syndrome, not elsewhere classified (principal); Z86.59 Personal history of other mental and behavioral disorders; Z86.19 Personal history of other infectious and parasitic diseases; G47.00 Insomnia, unspecified; F17.210 Nicotine dependence, cigarettes, uncomplicated; Z88.0 Allergy status to penicillin; Z88.1 Allergy status to other antibiotic agents; Z88.8 Allergy status to other drugs, medicaments and biological substances; Z79.891 Long term (current) use of opiate analgesic; Z79.899 Other long term (current) drug therapy

== ENCOUNTER 2019-05-25 10:21 | Emergency (ER) | payer MEDICARE, MEDICAID ==
[~2019-05-25] VITALS: Ht 160 cm; Wt 65.9 kg
[2019-05-25 10:21] VITALS: BP 134/84
[~2019-05-25 10:21] MED LIST changes: -DULO1CAP3; +DULO1CAP6
[2019-05-25] MEDS ORDERED: IBUPROFEN 600 MG TAB PO ONE (10:30)
--- NOTE | 2019-05-26 07:36 | REP ---
Clinical: Trauma. Technique: AP, lateral, bilateral oblique views right second and third toes . Findings: The osseous structures and joint spaces are intact and normal. There is no evidence for acute fracture or dislocation. Surrounding soft tissues are unremarkable. No subcutaneous emphysema or radiodense foreign body. Impression: No acute fracture or dislocation. Electronically Signed by Tyler Amador MD 05/25/2019 11:18 A
== END 2019-05-25 11:38 | disposition home or self-care (01) ==
LOC: M ED 10:21
DX: S90.416A Abrasion, unspecified lesser toe(s), initial encounter (principal); S90.121A Contusion of right lesser toe(s) without damage to nail, initial encounter; W20.8XXA Other cause of strike by thrown, projected or falling object, initial encounter; Y92.099 Unspecified place in other non-institutional residence as the place of occurrence of the external cause; Y93.9 Activity, unspecified; Y99.9 Unspecified external cause status; F41.9 Anxiety disorder, unspecified; F32.9 Major depressive disorder, single episode, unspecified; F17.200 Nicotine dependence, unspecified, uncomplicated; Z79.899 Other long term (current) drug therapy; Z88.0 Allergy status to penicillin

== ENCOUNTER → 2019-06-27 | Outpatient (CLI) | payer MEDICARE, MEDICAID ==
--- NOTE | 2019-06-27 12:29 | REP ---
Right foot four views : There is no fracture or dislocation. Mineralization and joint spaces are normal. There are no calcifications or foreign bodies. Impression: Negative right foot. Left foot four views : There is no fracture or dislocation. Mineralization and joint spaces are normal. There are no calcifications or foreign bodies. There is an old healed fracture of the base of the fifth digit metatarsal . Impression: Negative left foot . Electronically Signed by Abel Bustillo MD 06/27/2019 12:21 P
--- NOTE | 2019-06-27 12:37 | REP ---
Bilateral hand series: Eight views. History : Arthritis. Findings: Overall mineralization pattern is normal. There is no evidence of joint space narrowing. There are mild osteoarthritic changes. Most prominent spurring is at the DIP joint of the index finger on the right. There is mild early spurring at the dorsal aspect of the DIP joints of the long, ring, and small finger on the right and the IP joint of the thumb. There is minimal osteoarthritic spurring at the MCP joint on the right thumb. There are tiny accessory ossicles adjacent to the PIP joint of the index finger and long finger on the right. On the left, there is mild spurring at the IP joint of the thumb and the index DIP joint. A tiny accessory ossicle is seen along with early spurring at the MCP joint on the left. Impression: Mild osteoarthritic changes. Normal overall mineralization. Electronically Signed by Gordon Venegas MD 06/27/2019 12:56 P
== END ==
LOC: M RAD 09:09
PROVIDERS: ATTEND Internal Medicine Rheumatology
DX: M19.041 Primary osteoarthritis, right hand (principal); M19.042 Primary osteoarthritis, left hand; F11.20 Opioid dependence, uncomplicated

== ENCOUNTER → 2019-06-27 | Outpatient (CLI) | payer MEDICARE, MEDICAID ==
[2019-06-27 10:06] LABS: HEMATOCRIT 43.9 % (36.0-47.0); HEMOGLOBIN 14.3 g/dl (12.0-15.5); MEAN CORPUSCULAR HEMOGLOBIN 28.8 pg (27.0-33.0); MEAN CORPUSCULAR HGB CONC 32.6 g/dl (32.0-36.5); MEAN CORPUSCULAR VOLUME 88.3 fl (80.0-96.0); PLATELET COUNT, AUTOMATED 416 10^3/uL (150-450); RED BLOOD COUNT 4.97 10^6/uL (4.00-5.40); WHITE BLOOD COUNT 7.1 10^3/uL (4.0-10.0)
[2019-06-27 10:36] LABS: ALBUMIN 3.6 GM/DL (3.2-5.2); ALT/SGPT 15 U/L (12-78); BILIRUBIN,TOTAL 0.3 MG/DL (0.2-1.0); BLOOD UREA NITROGEN 14 MG/DL (7-18); CALCIUM LEVEL 9.2 MG/DL (8.5-10.1); CARBON DIOXIDE LEVEL 29 MEQ/L (21-32); CHLORIDE LEVEL 102 MEQ/L (98-107); CREATININE FOR GFR 0.72 MG/DL (0.55-1.30); GLOMERULAR FILTRATION RATE > 60.0 (>58); GLUCOSE, FASTING 97 MG/DL (70-100); POTASSIUM SERUM 4.5 MEQ/L (3.5-5.1); SODIUM LEVEL 138 MEQ/L (136-145); TOTAL PROTEIN 7.1 GM/DL (6.4-8.2)
[2019-06-27 10:37] LABS: HCG, SERUM QUALITATIVE NEGATIVE (NEGATIVE)
[2019-06-27 10:57] LABS: HEPATITIS B SURFACE ANTIGEN NEGATIVE (NEGATIVE)
[2019-06-27 11:23] LABS: HIV 1&2 SCREEN CENTAUR NEGATIVE (NEGATIVE)
[2019-06-27 12:17] LABS: CHLAMYDIA DNA AMPLIFICATION NEGATIVE (NEGATIVE); GC DNA AMPLIFICATION NEGATIVE (NEGATIVE)
[2019-06-27 12:27] LABS: HEPATITIS C VIRUS ABY INDEX > 11.0 INDEX (<0.8)
== END ==
LOC: M LAB 09:03
PROVIDERS: ATTEND Family Medicine
DX: F11.20 Opioid dependence, uncomplicated (principal)

== ENCOUNTER → 2019-08-01 | Outpatient (CLI) | payer MEDICARE, MEDICAID ==
[2019-08-06 00:07] LABS: CYCLIC CITRULLINATED PEPTIDE 6 units (0-19); HLA-B27 Negative (.)
== END ==
LOC: M LAB 10:19
PROVIDERS: ATTEND Internal Medicine Rheumatology
DX: M19.90 Unspecified osteoarthritis, unspecified site (principal)

== ENCOUNTER → 2019-09-08 | Outpatient (REF) | payer MEDICARE, MEDICAID ==
[~2019-09-08] MED LIST changes: -TRAZ-163 PO; +TRAZ-257 PO
== END ==
LOC: M PLALAB 11:18
PROVIDERS: ATTEND Nurse Practitioner Family
DX: N84.1 Polyp of cervix uteri (principal)
CPT/HCPCS: 88305; G0463

== ENCOUNTER → 2019-10-06 | Outpatient (REF) | payer MEDICARE, MEDICAID ==
[2019-10-06 17:40] LABS: BASO % 0.5 % (0.0-1.0); EOS # 0.1 10^3/uL (0.0-0.5); EOS % 1.1 % (0.0-3.0); HEMOGLOBIN 14.9 g/dl (12.0-15.5); LYMPH # 2.5 10^3/uL (1.5-5.0); LYMPH % 28.2 % (24.0-44.0); MEAN CORPUSCULAR HEMOGLOBIN 27.7 pg (27.0-33.0); MEAN CORPUSCULAR HGB CONC 32.4 g/dl (32.0-36.5); MEAN CORPUSCULAR VOLUME 85.7 fl (80.0-96.0); MONO # 0.7 10^3/uL (0.0-0.8); NEUTROPHILS # 5.4 10^3/uL (1.5-8.5); NEUTROPHILS % 61.7 % (36.0-66.0); PLATELET COUNT, AUTOMATED 462 10^3/uL (150-450); RED BLOOD COUNT 5.37 10^6/uL (4.00-5.40); WHITE BLOOD COUNT 8.7 10^3/uL (4.0-10.0)
[2019-10-06 18:01] LABS: ALBUMIN 4.1 GM/DL (3.2-5.2); ALT/SGPT 16 U/L (12-78); BILIRUBIN,TOTAL 0.3 MG/DL (0.2-1.0); BLOOD UREA NITROGEN 11 MG/DL (7-18); C REACTIVE PROTEIN QUANTITATIV 0.96 MG/DL (0.00-0.30); CALCIUM LEVEL 9.1 MG/DL (8.5-10.1); CARBON DIOXIDE LEVEL 30 MEQ/L (21-32); CHLORIDE LEVEL 103 MEQ/L (98-107); CREATININE FOR GFR 0.82 MG/DL (0.55-1.30); GLOMERULAR FILTRATION RATE > 60.0 (>58); GLUCOSE, FASTING 89 MG/DL (70-100); POTASSIUM SERUM 4.3 MEQ/L (3.5-5.1); SODIUM LEVEL 137 MEQ/L (136-145); TOTAL PROTEIN 8.3 GM/DL (6.4-8.2)
[2019-10-06 18:27] LABS: ERYTHROCYTE SEDIMENTATION RATE 9 mm/hr (0-20)
[2019-10-09 14:07] LABS: HEPATITIS C QUANTITATION HCV Not Detected IU/mL (.)
== END ==
LOC: M SFHCRHEU 15:38
PROVIDERS: ATTEND Internal Medicine
DX: L40.0 Psoriasis vulgaris (principal); Z86.19 Personal history of other infectious and parasitic diseases
CPT/HCPCS: 36415; 80053; 85025; 85652; 86140; 86480; 87522; G0463

== ENCOUNTER 2019-11-09 10:04 | Emergency (ER) | payer MEDICARE, MEDICAID ==
[~2019-11-09] VITALS: Ht 160 cm; Wt 68.4 kg
[2019-11-09] MEDS ORDERED: METH5TA PO (10:29)
--- NOTE | 2019-11-09 11:23 | REP ---
Sacrum and coccyx three views: I suspect there is a fracture of the fourth sacral fragment as an interval change. I suspect there are is also is a fracture of the third sacral segment. The sacroiliac articulations are unremarkable. The sacral ala and foramen are unremarkable. There is surgical fusion of the distal lumbar spine and intervertebral disc spacer of the distal lumbar spine. These is unchanged. Electronically Signed by Aebl Bustillo MD 11/09/2019 11:14 A
[2019-11-09 11:59] VITALS: BP 112/67
== END 2019-11-09 12:01 | disposition home or self-care (01) ==
LOC: M ED 10:04
DX: S32.10XA Unspecified fracture of sacrum, initial encounter for closed fracture (principal); W10.9XXA Fall (on) (from) unspecified stairs and steps, initial encounter; Y92.099 Unspecified place in other non-institutional residence as the place of occurrence of the external cause; Y93.9 Activity, unspecified; Y99.9 Unspecified external cause status; M43.23 Fusion of spine, cervicothoracic region; F17.200 Nicotine dependence, unspecified, uncomplicated; Z79.899 Other long term (current) drug therapy; Z88.0 Allergy status to penicillin

== ENCOUNTER → 2020-03-09 | Outpatient (CLI) | payer MEDICARE, MEDICAID ==
[~2020-03-09] MED LIST changes: +METH5TA PO
--- NOTE | 2020-03-11 18:28 | ECGEPIP ---
[facility] Test Date: 2020-03-09 Pat Name: SHAJI VENTURA Department: Room: - Gender: Female Inspector Technician: KRISHNA : 1975 Requested By: Abel Pollack Order Number: [id number] Reading MD: Abdon Navas Measurements Intervals [place] Rate: 73 P: 63 MT: 147 QRS: 90 QRSD: 98 T: 69 QT: 409 QTc: 451 Interpretive Statements SINUS RHYTHM No prior tracing in the system Electronically Signed on 03-11-2020 18:27:44 EDT by Abdon Navas
== END ==
LOC: M EKG 11:31
PROVIDERS: ATTEND Family Medicine
DX: F11.20 Opioid dependence, uncomplicated (principal)

== ENCOUNTER → 2020-07-15 | Outpatient (CLI) | payer MEDICARE, MEDICAID | LOC: M LABSMTC 13:18 | PROVIDERS: ATTEND Family Medicine | DX: Z20.828 Contact with and (suspected) exposure to other viral communicable diseases (principal) | CPT/HCPCS: C9803; U0003 ==

== ENCOUNTER 2021-04-21 14:46 | Emergency (ER) | payer MEDICARE, MEDICAID ==
[~2021-04-21] VITALS: Ht 160 cm; Wt 65.0 kg
[2021-04-21 14:47] VITALS: BP 125/74
== END 2021-04-21 17:04 | disposition left against medical advice (07) ==
LOC: M ED 14:46
DX: Z53.21 Procedure and treatment not carried out due to patient leaving prior to being seen by health care provider (principal)

== ENCOUNTER 2021-05-02 22:14 | Emergency (ER) | payer MEDICAID, MEDICARE, OTHER ==
[~2021-05-02] VITALS: Ht 160 cm; Wt 65.0 kg
[2021-05-03 01:44] LABS: RSV AMPLIFICATION NEGATIVE (NEGATIVE)
[2021-05-03 02:52] VITALS: BP 114/66
== END 2021-05-03 03:46 | disposition home or self-care (01) ==
LOC: M ED 22:14
DX: J06.9 Acute upper respiratory infection, unspecified (principal); R05 Cough; F11.10 Opioid abuse, uncomplicated; F17.200 Nicotine dependence, unspecified, uncomplicated; Z88.1 Allergy status to other antibiotic agents

== ENCOUNTER → 2021-08-08 | Outpatient (CLI) | payer OTHER ==
[2021-08-08 14:12] LABS: HEMATOCRIT 41.6 % (36.0-47.0); HEMOGLOBIN 13.5 g/dl (12.0-15.5); MEAN CORPUSCULAR HEMOGLOBIN 26.9 pg (27.0-33.0); MEAN CORPUSCULAR HGB CONC 32.5 g/dl (32.0-36.5); PLATELET COUNT, AUTOMATED 431 10^3/uL (150-450); RED BLOOD COUNT 5.01 10^6/uL (4.00-5.40); WHITE BLOOD COUNT 10.2 10^3/uL (4.0-10.0)
[2021-08-08 14:41] LABS: ALBUMIN 3.9 GM/DL (3.2-5.2); ALT/SGPT 22 U/L (12-78); BILIRUBIN,TOTAL 0.2 MG/DL (0.2-1.0); BLOOD UREA NITROGEN 13 MG/DL (7-18); CALCIUM LEVEL 9.7 MG/DL (8.5-10.1); CARBON DIOXIDE LEVEL 31 MEQ/L (21-32); CHLORIDE LEVEL 102 MEQ/L (98-107); CREATININE FOR GFR 0.94 MG/DL (0.55-1.30); GLOMERULAR FILTRATION RATE > 60.0 (>58); GLUCOSE, FASTING 99 MG/DL (70-100); HCG, SERUM QUANTITATIVE 3 MIU/ML; POTASSIUM SERUM 4.5 MEQ/L (3.5-5.1); SODIUM LEVEL 136 MEQ/L (136-145); TOTAL PROTEIN 8.7 GM/DL (6.4-8.2)
[2021-08-08 14:53] LABS: HEPATITIS B SURFACE ANTIGEN NEGATIVE (NEGATIVE)
[2021-08-08 15:22] LABS: HIV 1&2 SCREEN CENTAUR NEGATIVE (NEGATIVE)
[2021-08-08 15:56] LABS: GC DNA AMPLIFICATION NEGATIVE (NEGATIVE)
[2021-08-08 16:05] LABS: HEPATITIS C VIRUS ABY INDEX > 11.0 INDEX (<0.8)
--- NOTE | 2021-08-08 16:30 | ECGEPIP ---
[facility] Test Date: 2021-08-08 Pat Name: SHAJI VENTURA Department: Room: - Gender: Female Public Health Sanitarian: angelica : 1975 Requested By: Abel Pollack Order Number: [id number] Reading MD: Jesus Thomson Measurements Intervals [place] Rate: 98 P: 72 DE: 162 QRS: 94 QRSD: 76 T: 67 QT: 358 QTc: 457 Interpretive Statements Normal sinus rhythm Possible Left atrial enlargement Rightward axis Poor R wave progression. No significant change compared with 03/09/2020. Electronically Signed on 08-08-2021 16:29:55 EST by Jesus Thomson
== END ==
LOC: M EKG 13:15
PROVIDERS: ATTEND Family Medicine
DX: F11.20 Opioid dependence, uncomplicated (principal)

== ENCOUNTER 2023-02-24 23:28 | Emergency (ER) | payer OTHER, MEDICAID ==
[~2023-02-24] VITALS: Ht 160 cm; Wt 63.3 kg
[2023-02-25 01:02] LABS: BASO % 0.4 % (0.0-1.0); HEMATOCRIT 39.1 % (36.0-47.0); HEMOGLOBIN 13.4 g/dl (12.0-15.5); LYMPH # 0.4 10^3/uL (1.5-5.0); LYMPH % 3.3 % (24.0-44.0); MEAN CORPUSCULAR HEMOGLOBIN 27.2 pg (27.0-33.0); MEAN CORPUSCULAR HGB CONC 34.3 g/dl (32.0-36.5); MEAN CORPUSCULAR VOLUME 79.3 fl (80.0-96.0); MONO # 0.5 10^3/uL (0.0-0.8); MONO % 4.6 % (2.0-8.0); NEUTROPHILS # 9.5 10^3/uL (1.5-8.5); PLATELET COUNT, AUTOMATED 247 10^3/uL (150-450); RED BLOOD COUNT 4.93 10^6/uL (4.00-5.40); WHITE BLOOD COUNT 10.5 10^3/uL (4.0-10.0)
[2023-02-25 01:27] LABS: CK-MB VALUE MASS 1.5 NG/ML (<3.6)
[2023-02-25 01:29] LABS: ALBUMIN 3.4 G/DL (3.2-5.2); BILIRUBIN,TOTAL 0.5 MG/DL (0.3-1.2); CALCIUM LEVEL 9.6 MG/DL (8.5-10.1); CREATININE FOR GFR 1.69 MG/DL (0.55-1.30); GLOMERULAR FILTRATION RATE 34.4 (>58); MB/CK RELATIVE INDEX 1.87 (< OR =4); POTASSIUM SERUM 3.4 MMOL/L (3.5-5.1); TOTAL PROTEIN 6.9 G/DL (5.7-8.2)
[2023-02-25 05:15] VITALS: BP 102/58; TEMP 97.4; O2SAT 100
[2023-02-26] MEDS ORDERED: IBUP200T46 PO (11:08)
== END 2023-02-25 05:53 | disposition left against medical advice (07) ==
LOC: M ED 23:28
DX: Z53.21 Procedure and treatment not carried out due to patient leaving prior to being seen by health care provider (principal)

== ENCOUNTER 2023-02-26 07:39 | Emergency (ER) | payer MEDICAID, OTHER ==
[2023-02-26] MEDS ORDERED: NS 1,000 ML IV ONE ×2 (07:50→12:10)
[2023-02-26] MEDS ORDERED: ISOVUE-370 76% 100ML VIAL As Ordered ONE (08:35)
[2023-02-26 08:39] LABS: VENOUS BASE EXCESS 6.2 (-2.0-2.0); VENOUS HCO3 31.1 MMOL/L (23.0-27.0); VENOUS O2 SATURATION 86.6 % (60.0-80.0); VENOUS PARTIAL PRESSURE CO2 45.7 mmHg (38.0-50.0); VENOUS PARTIAL PRESSURE O2 50.7 mmHg (30.0-50.0); VENOUS PH 7.451 UNITS (7.330-7.430); VENOUS STANDARD HCO3 29.8 MMOL/L; VENOUS TOTAL CO2 32.5 MMOL/L (24.0-28.0)
[2023-02-26 08:43] LABS: HEMATOCRIT 39.1 % (36.0-47.0); HEMOGLOBIN 13.2 g/dl (12.0-15.5); MEAN CORPUSCULAR HEMOGLOBIN 26.8 pg (27.0-33.0); MEAN CORPUSCULAR HGB CONC 33.8 g/dl (32.0-36.5); MEAN CORPUSCULAR VOLUME 79.3 fl (80.0-96.0); PLATELET COUNT, AUTOMATED 192 10^3/uL (150-450); RED BLOOD COUNT 4.93 10^6/uL (4.00-5.40); WHITE BLOOD COUNT 10.6 10^3/uL (4.0-10.0)
[2023-02-26] MEDS ORDERED: LIDOCAINE 2% 5ML JELLY UROJET TOP ONE (08:45)
[2023-02-26 08:57] LABS: ATYPICAL LYMPH 4 % (0-5); LYMPHOCYTES 9 % (16-44); MONOCYTES 12 % (0-5); MYELOCYTES 1 % (0-0); NEUTROPHILS 74 % (28-66)
[2023-02-26 08:58] LABS: ANISOCYTOSIS 1+; MICROCYTOSIS 1+; PLATELET ESTIMATE NORMAL (NORMAL); POIKILOCYTOSIS 1+; POLYCHROMASIA 1+
[2023-02-26 09:07] LABS: ETHYL ALCOHOL (ETHANOL) 0.005 % (0.000-0.010)
[2023-02-26 09:08] LABS: ACETAMINOPHEN LEVEL < 2.0 UG/ML (10.0-20.0); CPK CREATINE PHOSPHOKINASE 55 U/L (34-145); SALICYLATE LEVEL < 3.0 MG/DL (<30)
[2023-02-26 09:13] LABS: ALBUMIN 2.7 G/DL (3.2-5.2); ALKALINE PHOSPHATASE 171 U/L (46-116); ALT/SGPT 42 U/L (7.0-40); AST/SGOT 36 U/L (<34); BILIRUBIN,DIRECT 0.3 MG/DL (<0.4); BILIRUBIN,TOTAL 0.5 MG/DL (0.3-1.2); BLOOD UREA NITROGEN 25 MG/DL (9-23); CALCIUM LEVEL 8.9 MG/DL (8.5-10.1); CARBON DIOXIDE LEVEL 29 MMOL/L (20-31); CHLORIDE LEVEL 94 MMOL/L (98-107); CK-MB VALUE MASS 1.7 NG/ML (<3.6); CREATININE FOR GFR 0.61 MG/DL (0.55-1.30); GLOMERULAR FILTRATION RATE > 60.0 (>58); GLUCOSE, FASTING 150 MG/DL (60-100); MB/CK RELATIVE INDEX 3.09 (< OR =4); POTASSIUM SERUM 3.3 MMOL/L (3.5-5.1); SODIUM LEVEL 131 MMOL/L (136-145); THYROID STIMULATING HORMONE 0.101 uIU/ML (0.55-4.78); TOTAL PROTEIN 6.6 G/DL (5.7-8.2)
[2023-02-26 09:42] LABS: RSV AMPLIFICATION NEGATIVE (NEGATIVE)
[2023-02-26 09:44] LABS: BARBITURATES URINE NEGATIVE (NEGATIVE); BENZODIAZEPINES URINE NEGATIVE (NEGATIVE); COCAINE METABOLITE URINE NEGATIVE (NEGATIVE); OPIATES URINE NEGATIVE (NEGATIVE); PHENCYCLIDINE URINE NEGATIVE (NEGATIVE)
[2023-02-26 09:46] LABS: AMPHETAMINES LEVEL URINE POSITIVE (NEGATIVE); CANNABINOIDS URINE POSITIVE (NEGATIVE); METHADONE URINE POSITIVE (NEGATIVE)
[2023-02-26 09:46] LABS: CK-MB VALUE MASS 1.3 NG/ML (<3.6)
[2023-02-26 09:47] LABS: MB/CK RELATIVE INDEX 2.82 (< OR =4)
[2023-02-26 09:53] LABS: INR 1.19; PROTHROMBIN TIME 15.4 SECONDS (12.5-14.5)
[2023-02-26 09:54] LABS: PARTIAL THROMBOPLASTIN TIME 39.8 SECONDS (24.8-34.2)
[2023-02-26] MEDS ORDERED: IBUP200T46 PO (11:08)
[2023-02-26] MEDS ORDERED: HOME MED LIST COMPLETE! XX SCH (11:10)
[2023-02-26] MEDS ORDERED: VANCOMYCIN HCL 1,250 MG in NS 250 ML IV ONE (11:30)
[2023-02-26] MEDS ORDERED: VANCOMYCIN HCL 750 MG, VIAL MATE ADAPTER 1 EACH in D5W 250 ML IV ONE (11:40)
[2023-02-26] MEDS ORDERED: VANCOMYCIN HCL 500 MG in D5W MINI-BAG PLUS 100 ML IV ONE (11:40)
[2023-02-26] MEDS ORDERED: ACETAMINOPHEN TAB 650MG DOSE (2X325MG) PO ONE (12:10)
[2023-02-26] MEDS ORDERED: ACETAMINOPHEN 650MG SUPP PR ONE (12:40)
[2023-02-26] MEDS ORDERED: D5W IV ONE (13:00)
[2023-02-26] MEDS ORDERED: GENTAMICIN IV ONE (13:00)
[2023-02-26] MEDS ORDERED: KCL 10MEQ/100ML SWI (KRUN) 10 MEQ in IV 1 EA IV ONE (13:20)
[2023-02-26 14:45] VITALS: BP 134/60; TEMP 99.7; O2SAT 98
== END 2023-02-26 14:57 | disposition short-term general hospital (02) ==
LOC: M ED 07:39 → EEVIPCON 07:39 → M ED 14:57
DX: R41.82 Altered mental status, unspecified (principal); R93.0 Abnormal findings on diagnostic imaging of skull and head, not elsewhere classified; D72.828 Other elevated white blood cell count; R74.8 Abnormal levels of other serum enzymes; F19.10 Other psychoactive substance abuse, uncomplicated; F10.10 Alcohol abuse, uncomplicated; F17.200 Nicotine dependence, unspecified, uncomplicated; Z79.899 Other long term (current) drug therapy; Z88.0 Allergy status to penicillin
CPT/HCPCS: 51701; 70450; 70496; 70498; 71045; 74177; 80047; 80048; 80076; 80143; 80307; 81000; 81015; 82077; 82140; 82550; 82553; 82803; 83605; 84443; 85025; 85610; 85730; 86850; 86900; 86901; 87040; 87077; 87186; 87631; 93005; 93041; 93306; 94760; 96361; 96365; 96366; 96367; 96375; 99285; J1580; Q9967